=== PATIENT | male | born 2000 | race Caucasian/White ===

== ENCOUNTER 2019-11-26 16:08 | Emergency (ER) | payer OTHER ==
[~2019-11-26] VITALS: Ht 177.8 cm; Wt 77.3 kg
[2019-11-26] MEDS ORDERED: BACITRACIN 0.9 GM PACKET OINTMENT TP ONE (16:45)
[2019-11-26] MEDS ORDERED: KETOROLAC TROMETHAMINE 10 MG TABLET PO ONE (16:45)
[2019-11-26] MEDS ORDERED: OxyCODONE HCL/ACETAMINOPHEN 5-325 MG TABLET PO ONE (17:45)
[2019-11-26 18:02] VITALS: BP 128/67
== END 2019-11-26 21:25 | disposition home or self-care (01) ==
LOC: EMS 16:08
DX: S92.252A Displaced fracture of navicular [scaphoid] of left foot, initial encounter for closed fracture (principal); S50.312A Abrasion of left elbow, initial encounter; V00.131A Fall from skateboard, initial encounter; Y93.51 Activity, roller skating (inline) and skateboarding; Y92.89 Other specified places as the place of occurrence of the external cause; Y99.8 Other external cause status
CPT/HCPCS: 29105

== ENCOUNTER 2024-03-21 12:19 | Emergency (ER) | payer OTHER ==
[~2024-03-21] VITALS: Ht 177.8 cm; Wt 79.5 kg
[2024-03-21 12:27] VITALS: BP 122/73; PULSE 78; RESP 16; TEMP 98.3; O2SAT 98
[2024-03-21] MEDS: IBUPROFEN 600 MG TABLET PO ONE (14:38)
[2024-03-21] MEDS: ACETAMINOPHEN 500 MG TABLET PO ONE (14:39)
[2024-03-21] MEDS ORDERED: ACET-3385 PO (14:49)
== END 2024-03-21 15:20 | disposition home or self-care (01) ==
LOC: EMS 12:19
DX: S16.1XXA Strain of muscle, fascia and tendon at neck level, initial encounter (principal); S80.11XA Contusion of right lower leg, initial encounter; Z91.199 Patient's noncompliance with other medical treatment and regimen due to unspecified reason; V23.49XA Other motorcycle driver injured in collision with car, pick-up truck or van in traffic accident, initial encounter; Y93.89 Activity, other specified; Y92.89 Other specified places as the place of occurrence of the external cause; Y99.8 Other external cause status
CPT/HCPCS: 99284; 73562-TC; 73590-TC; Z7502; Z7610